=== PATIENT | female | born 1965 | race Caucasian/White ===

== ENCOUNTER 2016-10-22 21:46 | Emergency (ER) | payer MEDICAID ==
[~2016-10-22] VITALS: Ht 165.1 cm; Wt 81.8 kg
[~2016-10-22 21:46] MED LIST: BP MED PO; CHOLESTEROL MED
[2016-10-22] MEDS ORDERED: LEVO50 PO (21:57)
[2016-10-22] MEDS ORDERED: METF500T4 PO (21:57)
[2016-10-22] MEDS ORDERED: LISI-662 PO (21:57)
[2016-10-22 22:03] LABS: GLUCOSE,POINT OF CARE 125 MG/DL (70-110)
[2016-10-22] MEDS ORDERED: SODIUM CHLORIDE 0.9% 1,000 ML IV ONE (22:31)
[2016-10-22] MEDS ORDERED: KETOROLAC TROMETHAMINE 30 MG/ML VIAL IVP ONE (22:45)
[2016-10-22] MEDS ORDERED: ONDANSETRON HCL 4 MG/2 ML VIAL IVP ONE (22:45)
[2016-10-22 22:54] VITALS: BP 129/85
[2016-10-22 22:55] LABS: BASOPHILS % (AUTO) 0.1 % (0.0-2.0); EOSINOPHILS % (AUTO) 5.6 % (1.0-6.0); HEMATOCRIT 34.2 % (36-46); HEMOGLOBIN 11.6 g/dL (12.0-16.0); LYMPHOCYTES # (AUTO) 2.8 K/uL (1.0-4.8); LYMPHOCYTES % (AUTO) 17.4 % (22.0-44.0); MEAN CORPUSCULAR HEMOGLOBIN 28.9 pg (26.0-34.0); MEAN CORPUSCULAR HGB CONC 33.9 G/dL (31.0-37.0); MEAN CORPUSCULAR VOLUME 85 fL (80-100); MONOCYTES # (AUTO) 0.7 K/uL (0.1-1.0); MONOCYTES % (AUTO) 4.1 % (2.0-9.0); NEUTROPHILS # (AUTO) 11.6 K/uL (1.8-7.7); NEUTROPHILS % (AUTO) 72.8 % (40.0-70.0); PLATELET COUNT (AUTO) 353 K/uL (150-450); RED BLOOD CELL COUNT(AUTO) 4.01 MIL/uL (4.00-5.20); RED CELL DISTRIBUTION WIDTH 14.8 % (11.5-14.5)
[2016-10-22 23:09] LABS: ANION GAP 10 mmol/L (8-16); CALCIUM, TOTAL 9.6 mg/dL (8.8-10.5); CARBON DIOXIDE 25 mmol/L (22-29); CHLORIDE 102 mmol/L (98-107); CREATININE 0.74 mg/dL (0.60-1.30); GLOMERULAR FILTR. RATE CALC > 60 mL/min (>60); POTASSIUM 3.9 mmol/L (3.5-5.1); SODIUM SERUM 137 mmol/L (136-145); UREA NITROGEN, BLOOD 12 mg/dL (7-18)
[2016-10-22 23:15] LABS: ALANINE AMINOTRANSFERASE 78 U/L (12-78); ALBUMIN 3.7 g/dL (3.4-5.0); ASPARTATE AMINOTRANSFERASE 55 U/L (15-37); BILIRUBIN,TOTAL 0.3 mg/dL (0.1-1.0); TOTAL PROTEIN, SERUM 8.1 g/dL (6.4-8.2)
[2016-10-22] MEDS ORDERED: DONNATAL/LIDOCAINE/MAALOX 55 ML BOTTLE PO ONE (23:45)
[2016-10-22] MEDS ORDERED: PANTOPRAZOLE SODIUM 40 MG/VIAL IVP ONE (23:45)
[2016-10-23] MEDS ORDERED: SODIUM CHLORIDE 0.9% 1,000 ML IV ONE (00:15)
== END 2016-10-23 02:06 | disposition home or self-care (01) ==
LOC: EMS 21:47
DX: K29.70 Gastritis, unspecified, without bleeding (principal); E86.0 Dehydration; E11.9 Type 2 diabetes mellitus without complications; I10 Essential (primary) hypertension; E78.00 Pure hypercholesterolemia, unspecified; E03.9 Hypothyroidism, unspecified
CPT/HCPCS: 36415; 80053; 81002; 82962; 83690; 84484; 85025; 93005; 96361; 96374; 96375; 99285; C9113; J1885; J2405; J7030; Z7610